=== PATIENT | female | born 1950 | race Caucasian/White ===

== ENCOUNTER 2016-05-20 09:21 | Inpatient (IN) | payer OTHER ==
[2016-05-20] VITALS (9 sets, daily range): BP systolic 110–168; BP diastolic 60–83
[~2016-05-20] VITALS: Ht 172.7 cm; Wt 116.9 kg
[~2016-05-20 09:21] MED LIST: ADVAIR HFA120 INHALA IH; CARRASYN HYDROG85 GM TP; CYCLOBENZAPRINE10 MG PO; CYMBALTA30 MG PO; CYMBALTA60 MG PO; DITROPAN XL15 MG PO; DITROPAN5 MG PO; FERROUS SULFAT325 MG PO; GLUCOPHAGE1000 MG PO; KADIAN30 MG PO; LANTUS 10100 UNITS/ SC; LEVAQUIN500 MG PO; LYRICA50 MG PO; LYRICA75 MG PO; METFORMIN HCL500 MG PO; METHADOSE10 MG PO; MORPHINE SULFAT15 M1 PO; OXYCODONE HCL10 MG PO; PANTOPRAZOLE SO40 MG PO; PERCOCET 10/1 TABLET PO; PERCOCET 5/31 TABLET PO; PREDNISONE10 MG PO; SPIRIVA RESPIMAT4 GM IH; SYNTHROID150 MCG PO; TIZANIDINE HCL2 M1 PO; TOVIAZ8 MG PO; WELLBUTRIN SR150 MG PO; WELLBUTRIN XL300 MG PO; XANAX0.25 MG PO; ZANTAC150 MG PO; ZESTRIL40 MG PO
[2016-05-20 09:51] LABS: EOSINOPHIL (%) 0 % (0-5); HEMATOCRIT 33.2 % (36.0-46.0); IMMATURE GRANULOCYTE (%) 0.4 % (0.0-0.7); IMMATURE GRANULOCYTE COUNT 0.3 K/uL; LYMPHOCYTE COUNT 0.3 K/uL (1.0-2.8); MCH 22.5 PG (29.0-34.0); MCHC 30.4 G/DL (30.0-36.0); MCV 73.9 FL (83-99); MONOCYTE (%) 10.3 % (3-12); MONOCYTE COUNT 0.7 K/uL (0-0.8); NEUTROPHIL (%) 84.5 % (45-76); NEUTROPHIL COUNT 6.1 K/uL (1.8-6.4); RBC DIS.WIDTH-CV 22.5 % (11.8-14.6); RBC DIS.WIDTH-SD 58.7 % (39-53); RED BLOOD COUNT 4.49 M/uL (3.80-5.20); WHITE BLOOD COUNT 7.2 K/uL (4.1-10.2)
[2016-05-20 09:57] LABS: CHLORIDE 104 mEq/L (99-109); POTASSIUM 4.2 mEq/L (3.7-5.4); SODIUM 138 mEq/L (136-147)
[2016-05-20 09:58] LABS: ADD MIUA? YES; BILIRUBIN NEGATIVE; BLOOD NEGATIVE; COLOR YELLOW ((YELLOW)); GLUCOSE (STRIP) >=1000; KETONES NEGATIVE; LEUKOCYTES NEGATIVE; NITRITE NEGATIVE; PH, URINE 5.5 (5-8); PROTEIN (STRIP) TRACE; UROBILINOGEN 0.2 MG/DL (0.2-1.0)
[2016-05-20 09:59] LABS: GLUCOSE 378 mg/dL (70-99)
[2016-05-20 10:00] LABS: ANION GAP 13 MEQ/L (2-14)
[2016-05-20 10:01] LABS: TOTAL BILIRUBIN 0.6 mg/dL (0.0-1.0)
[2016-05-20 10:02] LABS: CARBOXY HGB 1.7 % (0-5); METHEMOGLOBIN 1.1 % (0-1.5); PCO2 42 mm Hg (35-45); PO2 385 mm Hg (80-100)
[2016-05-20 10:03] LABS: COMMENTS - BLOOD GASES A+C+; DEVICE 840; FI02 100 %; MODE SPONT; PEEP 5 CM/H20; PRES. SUPPORT 15 CM/H2O; SITE LR; TOTAL RESP RATE 26 resp/min
[2016-05-20 10:03] LABS: ALKALINE PHOSPHATASE 84 IU/L (3-129); GFR ESTIMATE (CALCULATED) 53 mL/min/
[2016-05-20 10:04] LABS: UREA NITROGEN (BUN) 26 mg/dL (9-23)
[2016-05-20 10:06] LABS: CREATINE KINASE 61 IU/L (1-294); TOTAL CK 61 IU/L (1-294); TROP-I INTERPRETATION NEGATIVE; TROPONIN-I 0.12 ng/mL (0.0-0.30)
[2016-05-20 10:14] LABS: CK-MB 2.4 ng/mL (0.0-4.9)
[2016-05-20 10:28] LABS: BACTERIA RARE; CASTS NONE SEEN /LPF; CRYSTALS NONE SEEN; EPITHELIAL CELLS 1+; MUCUS NONE SEEN; RED BLOOD CELLS 0-5 /HPF (0-5); UCUL ADDED? NO; WHITE BLOOD CELLS 0-5 /HPF (0-5)
[2016-05-20 10:35] LABS: HEMATOLOGY COMMENT 1 SMEAR COMPATIBLE
[2016-05-20] MEDS ORDERED: NEURONTIN100 MG PO (10:35)
[2016-05-20 10:37] LABS: PLATELET COUNT ND K/uL (156-360)
[2016-05-20] MEDS ORDERED: ANCEF,KEFZ1 GM/50 ML IV (10:42)
[2016-05-20] MEDS ORDERED: NYSTATIN100000 UN1 PO (10:46)
[2016-05-20] MEDS ORDERED: DULERA 100 MCG/13 GM IH (10:49)
[2016-05-20] MEDS ORDERED: WELLBUTRIN SR150 MG PO (10:50)
[2016-05-20] MEDS ORDERED: LYRICA75 MG PO (10:51)
[2016-05-20] MEDS ORDERED: ATROVENT 00.5 MG/2.5 IH (10:53)
[2016-05-20] MEDS ORDERED: PROVENTIL,2.5 MG/3 M IH (10:54)
[2016-05-20] MEDS ORDERED: LASIX40 MG PO (10:55)
[2016-05-20] MEDS ORDERED: MORGIDOX100 MG PO (10:56)
[2016-05-20] MEDS ORDERED: PREDNISONE10 MG PO (10:58)
[2016-05-20] MEDS ORDERED: ATIVAN0.5 MG PO (11:06)
[2016-05-20] MEDS ORDERED: ACETAMINOPHEN325 M1 PO (11:08)
[2016-05-20] MEDS ORDERED: MILK OF MAGNESI10 ML PO (11:17)
[2016-05-20] MEDS ORDERED: DULCOLAX10 MG PR (11:18)
[2016-05-20] MEDS ORDERED: FLEET ENEMA-AD118 ML PR (11:19)
[2016-05-20] MEDS ORDERED: LEVO-T175 MCG PO (11:24)
[2016-05-20 16:58] LABS: POINT-OF-CARE METER ID UU14174216
[2016-05-20 17:11] LABS: BASE EXCESS 4.5 mEq/L (-3 to +3); BICARBONATE 29.2 mEq/L (22-26); CARBOXY HGB 1.8 % (0-5); METHEMOGLOBIN 1.5 % (0-1.5); PCO2 43 mm Hg (35-45); pH 7.44 (7.35-7.45)
[2016-05-20 17:13] LABS: COMMENTS - BLOOD GASES A+C+; PO2 76 mm Hg (80-100); SITE LR
[2016-05-20 17:14] LABS: DEVICE AEROSOL MASK; FI02 75 %
[2016-05-20 19:04] LABS: ANION GAP 16 MEQ/L (2-14); CHLORIDE 95 MEQ/L (99-109); DIRECT BILIRUBIN 0.2 mg/dL (0.0-0.3); MAGNESIUM 1.5 mg/dl (1.3-2.7); POTASSIUM 3.9 MEQ/L (3.7-5.4); SAMPLE HEMOLYSIS CHECK 0; SAMPLE ICTERIC CHECK 0; SAMPLE LIPEMIA CHECK 0; SODIUM 139 MEQ/L (136-147); TOTAL BILIRUBIN 0.7 MG/DL (0.0-1.0)
[2016-05-20 19:20] LABS: METH RESISTANT S AUREUS PCR NEGATIVE (NEGATIVE)
[2016-05-20 19:21] LABS: ALKALINE PHOSPHATASE 76 IU/L (3-129); GFR ESTIMATE (CALCULATED) > 59 mL/min/; GLUCOSE 371 mg/dL (70-99); UREA NITROGEN (BUN) 26 mg/dL (9-23)
[2016-05-20 19:30] LABS: PROBE CHECK PASS; SPECIMEN PROCESSING CONTROL PASS
[2016-05-20 19:37] LABS: EOSINOPHIL (%) 0 % (0-5); HEMATOCRIT 33.4 % (36.0-46.0); HEMATOLOGY COMMENT 1 SMEAR COMPATIBLE; IMMATURE GRANULOCYTE (%) 0.1 % (0.0-0.7); LYMPHOCYTE COUNT 0.3 K/uL (1.0-2.8); MCHC 30.8 G/DL (30.0-36.0); MCV 74.7 FL (83-99); MONOCYTE (%) 4.4 % (3-12); MONOCYTE COUNT 0.3 K/uL (0-0.8); NEUTROPHIL (%) 90.7 % (45-76); NEUTROPHIL COUNT 6.5 K/uL (1.8-6.4); PLAT.SUFFICIENCY ADEQUATE; PLATELET COUNT 244 K/uL (156-360); RBC DIS.WIDTH-CV 22.2 % (11.8-14.6); RBC DIS.WIDTH-SD 59.9 % (39-53); RED BLOOD COUNT 4.47 M/uL (3.80-5.20); USER ID NPD; WHITE BLOOD COUNT 7.1 K/uL (4.1-10.2)
[2016-05-20 23:37] LABS: INFLUENZA A VIRAL ANTIGEN NEGATIVE; INFLUENZA B VIRAL ANTIGEN NEGATIVE
[2016-05-21] VITALS (24 sets, daily range): BP systolic 114–152; BP diastolic 60–84
[2016-05-21 05:26] LABS: POINT-OF-CARE METER ID UU13113748
[2016-05-21 07:15] LABS: ANION GAP 14 MEQ/L (2-14); CHLORIDE 98 MEQ/L (99-109); GFR ESTIMATE (CALCULATED) > 59 mL/min/; GLUCOSE 320 mg/dL (70-99); MAGNESIUM 1.5 mg/dl (1.3-2.7); POTASSIUM 3.7 MEQ/L (3.7-5.4); SAMPLE HEMOLYSIS CHECK 0; SAMPLE ICTERIC CHECK 0; SAMPLE LIPEMIA CHECK 0; SODIUM 143 MEQ/L (136-147); UREA NITROGEN (BUN) 29 mg/dL (9-23)
[2016-05-21 07:38] LABS: EOSINOPHIL (%) 0 % (0-5); HEMATOCRIT 32.3 % (36.0-46.0); IMMATURE GRANULOCYTE (%) 0.4 % (0.0-0.7); LYMPHOCYTE COUNT 0.3 K/uL (1.0-2.8); MCH 22.3 PG (29.0-34.0); MCHC 30.3 G/DL (30.0-36.0); MCV 73.6 FL (83-99); MEAN PLAT.VOLUME 11.3 uM^3 (9.5-12.4); MONOCYTE COUNT 0.3 K/uL (0-0.8); NEUTROPHIL (%) 88.9 % (45-76); NEUTROPHIL COUNT 4.7 K/uL (1.8-6.4); PLAT.SUFFICIENCY ADEQUATE; PLATELET COUNT 251 K/uL (156-360); RBC DIS.WIDTH-SD 58.3 % (39-53); RED BLOOD COUNT 4.39 M/uL (3.80-5.20); USER ID SDF; WHITE BLOOD COUNT 5.3 K/uL (4.1-10.2)
[2016-05-22] VITALS (23 sets, daily range): BP systolic 117–151; BP diastolic 54–114
[2016-05-22 06:51] LABS: ANION GAP 13 MEQ/L (2-14); CHLORIDE 97 MEQ/L (99-109); GFR ESTIMATE (CALCULATED) > 59 mL/min/; GLUCOSE 297 mg/dL (70-99); POTASSIUM 3.3 MEQ/L (3.7-5.4); SAMPLE HEMOLYSIS CHECK 0; SAMPLE ICTERIC CHECK 0; SAMPLE LIPEMIA CHECK 0; SODIUM 142 MEQ/L (136-147); UREA NITROGEN (BUN) 29 mg/dL (9-23)
[2016-05-22 07:03] LABS: EOSINOPHIL (%) 0 % (0-5); HEMATOCRIT 31.7 % (36.0-46.0); IMMATURE GRANULOCYTE (%) 0.9 % (0.0-0.7); IMMATURE GRANULOCYTE COUNT 0.1 K/uL; LYMPHOCYTE COUNT 0.3 K/uL (1.0-2.8); MCH 22.6 PG (29.0-34.0); MCHC 30.6 G/DL (30.0-36.0); MCV 73.9 FL (83-99); MONOCYTE (%) 4.9 % (3-12); MONOCYTE COUNT 0.3 K/uL (0-0.8); NEUTROPHIL (%) 88.3 % (45-76); NEUTROPHIL COUNT 4.8 K/uL (1.8-6.4); PLAT.SUFFICIENCY ADEQUATE; PLATELET COUNT 244 K/uL (156-360); RBC DIS.WIDTH-CV 22.1 % (11.8-14.6); RBC DIS.WIDTH-SD 58.8 % (39-53); RED BLOOD COUNT 4.29 M/uL (3.80-5.20); USER ID SDF; WHITE BLOOD COUNT 5.5 K/uL (4.1-10.2)
[2016-05-22 07:05] LABS: MAGNESIUM 2.2 mg/dl (1.3-2.7)
[2016-05-22 15:46] LABS: POINT-OF-CARE METER ID UU14174217
[2016-05-22 16:35] LABS: BASE EXCESS 16.4 mEq/L (-3 to +3); CARBOXY HGB 1.9 % (0-5); METHEMOGLOBIN 1.5 % (0-1.5); PO2 62 mm Hg (80-100); pH 7.51 (7.35-7.45)
[2016-05-22 16:36] LABS: BICARBONATE 41.5 mEq/L (22-26); COMMENTS - BLOOD GASES A+C+; DEVICE HHFNC; FI02 60 %; O2 FLOW 40 L/MIN; PCO2 52 mm Hg (35-45); SITE LR
[2016-05-22 22:12] LABS: POINT-OF-CARE METER ID UU14174217
[2016-05-23] VITALS (23 sets, daily range): BP systolic 127–165; BP diastolic 57–109
[2016-05-23 06:52] LABS: ANION GAP 10 MEQ/L (2-14); CHLORIDE 96 MEQ/L (99-109); GFR ESTIMATE (CALCULATED) > 59 mL/min/; GLUCOSE 207 mg/dL (70-99); POTASSIUM 3.7 MEQ/L (3.7-5.4); SAMPLE HEMOLYSIS CHECK 0; SAMPLE ICTERIC CHECK 0; SAMPLE LIPEMIA CHECK 0; SODIUM 138 MEQ/L (136-147); UREA NITROGEN (BUN) 32 mg/dL (9-23)
[2016-05-23 07:04] LABS: EOSINOPHIL (%) 0.2 % (0-5); HEMATOCRIT 32.6 % (36.0-46.0); IMMATURE GRANULOCYTE (%) 1.4 % (0.0-0.7); IMMATURE GRANULOCYTE COUNT 0.1 K/uL; LYMPHOCYTE COUNT 0.5 K/uL (1.0-2.8); MCH 22.5 PG (29.0-34.0); MCHC 30.1 G/DL (30.0-36.0); MCV 74.9 FL (83-99); MONOCYTE (%) 10.2 % (3-12); MONOCYTE COUNT 0.6 K/uL (0-0.8); NEUTROPHIL (%) 79.4 % (45-76); NEUTROPHIL COUNT 4.5 K/uL (1.8-6.4); RBC DIS.WIDTH-CV 21.6 % (11.8-14.6); RBC DIS.WIDTH-SD 59.1 % (39-53); RED BLOOD COUNT 4.35 M/uL (3.80-5.20); WHITE BLOOD COUNT 5.6 K/uL (4.1-10.2)
[2016-05-23 07:19] LABS: MEAN PLAT.VOLUME 11.5 uM^3 (9.5-12.4); PLAT.SUFFICIENCY ADEQUATE; PLATELET COUNT 236 K/uL (156-360); USER ID SDF
[2016-05-24] VITALS (24 sets, daily range): BP systolic 94–180; BP diastolic 55–90
[2016-05-24 01:06] LABS: POINT-OF-CARE METER ID UU14174217
[2016-05-24 06:29] LABS: EOSINOPHIL (%) 0 % (0-5); HEMATOCRIT 35.2 % (36.0-46.0); IMMATURE GRANULOCYTE (%) 2.3 % (0.0-0.7); IMMATURE GRANULOCYTE COUNT 0.1 K/uL; LYMPHOCYTE COUNT 0.4 K/uL (1.0-2.8); MCH 21.9 PG (29.0-34.0); MCV 75.7 FL (83-99); MONOCYTE (%) 3.4 % (3-12); MONOCYTE COUNT 0.2 K/uL (0-0.8); NEUTROPHIL (%) 87.8 % (45-76); NEUTROPHIL COUNT 5.4 K/uL (1.8-6.4); RBC DIS.WIDTH-CV 21.7 % (11.8-14.6); RBC DIS.WIDTH-SD 59.2 % (39-53); RED BLOOD COUNT 4.65 M/uL (3.80-5.20); WHITE BLOOD COUNT 6.2 K/uL (4.1-10.2)
[2016-05-24 06:32] LABS: ANION GAP 11 MEQ/L (2-14); CHLORIDE 100 MEQ/L (99-109); GFR ESTIMATE (CALCULATED) > 59 mL/min/; GLUCOSE 128 mg/dL (70-99); SAMPLE HEMOLYSIS CHECK 0; SAMPLE ICTERIC CHECK 0; SAMPLE LIPEMIA CHECK 0; UREA NITROGEN (BUN) 32 mg/dL (9-23)
[2016-05-24 06:48] LABS: SODIUM 145 MEQ/L (136-147)
[2016-05-24 08:31] LABS: PLAT.SUFFICIENCY ADEQUATE; PLATELET COUNT 206 K/uL (156-360); USER ID CCL
[2016-05-24 16:39] LABS: POINT-OF-CARE METER ID UU13113748
[2016-05-25] VITALS (19 sets, daily range): BP systolic 118–152; BP diastolic 51–78
[2016-05-25 06:08] LABS: EOSINOPHIL (%) 0.2 % (0-5); IMMATURE GRANULOCYTE (%) 5.3 % (0.0-0.7); IMMATURE GRANULOCYTE COUNT 0.4 K/uL; LYMPHOCYTE COUNT 0.8 K/uL (1.0-2.8); MONOCYTE (%) 7.3 % (3-12); MONOCYTE COUNT 0.5 K/uL (0-0.8); NEUTROPHIL COUNT 4.9 K/uL (1.8-6.4)
[2016-05-25 06:14] LABS: HEMATOCRIT 34.4 % (36.0-46.0); MCH 22.2 PG (29.0-34.0); MCHC 29.7 G/DL (30.0-36.0); MCV 74.8 FL (83-99); RBC DIS.WIDTH-CV 21.5 % (11.8-14.6); RBC DIS.WIDTH-SD 57.8 % (39-53); WHITE BLOOD COUNT 6.6 K/uL (4.1-10.2)
[2016-05-25 06:15] LABS: ANION GAP 9 MEQ/L (2-14); CHLORIDE 96 MEQ/L (99-109); GFR ESTIMATE (CALCULATED) > 59 mL/min/; GLUCOSE 181 mg/dL (70-99); MAGNESIUM 1.7 mg/dl (1.3-2.7); POTASSIUM 3.5 MEQ/L (3.7-5.4); SAMPLE HEMOLYSIS CHECK 0; SAMPLE ICTERIC CHECK 0; SAMPLE LIPEMIA CHECK 0; UREA NITROGEN (BUN) 30 mg/dL (9-23)
[2016-05-25 06:16] LABS: SODIUM 136 MEQ/L (136-147)
[2016-05-25 06:33] LABS: ANISOCYTOSIS 1+; HEMATOLOGY COMMENT 1 REV; MACROCYTES 1+; PLAT.SUFFICIENCY ADEQUATE
[2016-05-25 06:35] LABS: PLATELET COUNT 214 K/uL (156-360)
[2016-05-25 12:25] LABS: POINT-OF-CARE METER ID UU14174217
[2016-05-25 15:41] LABS: POINT-OF-CARE METER ID UU14174217
[2016-05-25 22:49] LABS: POINT-OF-CARE METER ID UU14174217
[2016-05-26] VITALS (12 sets, daily range): BP systolic 126–158; BP diastolic 45–77
[2016-05-26 07:06] LABS: ANION GAP 15 MEQ/L (2-14); CHLORIDE 97 MEQ/L (99-109); GFR ESTIMATE (CALCULATED) 59 mL/min/; GLUCOSE 229 mg/dL (70-99); MAGNESIUM 1.8 mg/dl (1.3-2.7); POTASSIUM 4.2 MEQ/L (3.7-5.4); SAMPLE HEMOLYSIS CHECK 0; SAMPLE ICTERIC CHECK 0; SAMPLE LIPEMIA CHECK 0; SODIUM 138 MEQ/L (136-147); UREA NITROGEN (BUN) 35 mg/dL (9-23)
[2016-05-26 07:07] LABS: HEMATOCRIT 37.6 % (36.0-46.0); MCH 22.3 PG (29.0-34.0); MCHC 30.1 G/DL (30.0-36.0); MCV 74.2 FL (83-99); RBC DIS.WIDTH-CV 22.6 % (11.8-14.6); RED BLOOD COUNT 5.07 M/uL (3.80-5.20)
[2016-05-26 07:08] LABS: WHITE BLOOD COUNT 10.6 K/uL (4.1-10.2)
[2016-05-26 07:49] LABS: ABS NEUTROPHIL COUNT 8.51; ANISOCYTOSIS 1+; EOSINOPHIL (%) 0.2 % (0-5); IMMATURE GRANULOCYTE (%) 6.2 % (0.0-0.7); IMMATURE GRANULOCYTE COUNT 0.7 K/uL; LYMPHOCYTE COUNT 1.3 K/uL (1.0-2.8); MACROCYTES 1+; MONOCYTE (%) 7.8 % (3-12); MONOCYTE COUNT 0.8 K/uL (0-0.8); NEUTROPHIL (%) 73.2 % (45-76); NEUTROPHIL COUNT 7.8 K/uL (1.8-6.4); PLAT.SUFFICIENCY ADEQUATE; PLATELET COUNT UNABLE TO REPORT K/uL (156-360)
[2016-05-26 11:32] LABS: POINT-OF-CARE METER ID UU14174217
[2016-05-26 16:33] LABS: POINT-OF-CARE METER ID UU14174217
[2016-05-26 22:20] LABS: POINT-OF-CARE METER ID UU14174217
[2016-05-27] VITALS (12 sets, daily range): BP systolic 123–173; BP diastolic 58–95
[2016-05-27 06:36] LABS: ANION GAP 11 MEQ/L (2-14); CHLORIDE 101 MEQ/L (99-109); GFR ESTIMATE (CALCULATED) > 59 mL/min/; POTASSIUM 3.9 MEQ/L (3.7-5.4); SAMPLE HEMOLYSIS CHECK 0; SAMPLE ICTERIC CHECK 0; SAMPLE LIPEMIA CHECK 0; SODIUM 142 MEQ/L (136-147); UREA NITROGEN (BUN) 31 mg/dL (9-23)
[2016-05-27 06:37] LABS: GLUCOSE 109 mg/dL (70-99); MAGNESIUM 2.2 mg/dl (1.3-2.7)
[2016-05-27 07:50] LABS: ABS NEUTROPHIL COUNT 6.78; ANISOCYTOSIS 1+; EOSINOPHIL (%) 0.6 % (0-5); EOSINOPHIL ABS CT 0.09; EOSINOPHIL COUNT 0.1 K/uL (0-0.3); IMMATURE GRANULOCYTE (%) 5.3 % (0.0-0.7); IMMATURE GRANULOCYTE COUNT 0.5 K/uL; LYMPHOCYTE COUNT 1.7 K/uL (1.0-2.8); MACROCYTES 1+; MCH 22.9 PG (29.0-34.0); MCHC 30.3 G/DL (30.0-36.0); MCV 75.6 FL (83-99); MEAN PLAT.VOLUME 11.2 uM^3 (9.5-12.4); MONOCYTE (%) 7.6 % (3-12); MONOCYTE COUNT 0.7 K/uL (0-0.8); NEUTROPHIL (%) 67.5 % (45-76); NEUTROPHIL COUNT 6.3 K/uL (1.8-6.4); PLAT.SUFFICIENCY ADEQUATE; PLATELET COUNT 272 K/uL (156-360); RBC DIS.WIDTH-SD 61.9 % (39-53); RED BLOOD COUNT 4.76 M/uL (3.80-5.20); USER ID CCL; WHITE BLOOD COUNT 9.3 K/uL (4.1-10.2)
[2016-05-28 00:16] VITALS: BP 131/70
[2016-05-28 03:04] VITALS: BP 146/76
[2016-05-28 06:46] LABS: ANION GAP 13 MEQ/L (2-14); CHLORIDE 99 MEQ/L (99-109); GFR ESTIMATE (CALCULATED) > 59 mL/min/; MAGNESIUM 2.2 mg/dl (1.3-2.7); SAMPLE HEMOLYSIS CHECK 0; SAMPLE ICTERIC CHECK 0; SAMPLE LIPEMIA CHECK 0; SODIUM 137 MEQ/L (136-147); UREA NITROGEN (BUN) 34 mg/dL (9-23)
[2016-05-28 06:53] LABS: GLUCOSE 341 mg/dL (70-99); POTASSIUM 4.7 MEQ/L (3.7-5.4)
[2016-05-28 07:09] LABS: HEMATOCRIT 41.4 % (36.0-46.0); MCH 22.7 PG (29.0-34.0); MCV 75.7 FL (83-99); RBC DIS.WIDTH-CV 23.3 % (11.8-14.6); RBC DIS.WIDTH-SD 61.6 % (39-53); RED BLOOD COUNT 5.47 M/uL (3.80-5.20)
[2016-05-28 07:15] LABS: WHITE BLOOD COUNT 12.2 K/uL (4.1-10.2)
[2016-05-28 08:37] LABS: EOSINOPHIL (%) 0 % (0-5); HEMATOLOGY COMMENT 1 SMEAR COMPATIBLE; IMMATURE GRANULOCYTE (%) 3.1 % (0.0-0.7); IMMATURE GRANULOCYTE COUNT 0.4 K/uL; LYMPHOCYTE COUNT 0.8 K/uL (1.0-2.8); MONOCYTE COUNT 0.1 K/uL (0-0.8); NEUTROPHIL (%) 89.3 % (45-76); NEUTROPHIL COUNT 10.9 K/uL (1.8-6.4); PLAT.SUFFICIENCY ADEQUATE; PLATELET CLUMPS PRESENT; USER ID STC
[2016-05-28 08:40] VITALS: BP 122/58
[2016-05-28 11:25] VITALS: BP 145/67
[2016-05-28 16:00] VITALS: BP 130/61
[2016-05-28 16:34] LABS: POINT-OF-CARE METER ID UU13113698
[2016-05-28 19:30] VITALS: BP 136/92
[2016-05-29 00:53] VITALS: BP 144/70
[2016-05-29 03:34] VITALS: BP 167/77
[2016-05-29 06:01] LABS: ANION GAP 11 MEQ/L (2-14); CHLORIDE 98 MEQ/L (99-109); GFR ESTIMATE (CALCULATED) 59 mL/min/; GLUCOSE 298 mg/dL (70-99); MAGNESIUM 2.1 mg/dl (1.3-2.7); POTASSIUM 4.9 MEQ/L (3.7-5.4); SAMPLE HEMOLYSIS CHECK 0; SAMPLE ICTERIC CHECK 0; SAMPLE LIPEMIA CHECK 0; SODIUM 139 MEQ/L (136-147); UREA NITROGEN (BUN) 38 mg/dL (9-23)
[2016-05-29 06:41] LABS: EOSINOPHIL (%) 0 % (0-5); IMMATURE GRANULOCYTE (%) 1.5 % (0.0-0.7); IMMATURE GRANULOCYTE COUNT 0.2 K/uL; LYMPHOCYTE COUNT 1.4 K/uL (1.0-2.8); MCHC 29.3 G/DL (30.0-36.0); MCV 75.2 FL (83-99); MONOCYTE (%) 3.1 % (3-12); MONOCYTE COUNT 0.5 K/uL (0-0.8); NEUTROPHIL (%) 86.6 % (45-76); NEUTROPHIL COUNT 14.3 K/uL (1.8-6.4); RBC DIS.WIDTH-CV 23.4 % (11.8-14.6); RBC DIS.WIDTH-SD 61.6 % (39-53); RED BLOOD COUNT 5.45 M/uL (3.80-5.20)
[2016-05-29 06:52] LABS: WHITE BLOOD COUNT 16.5 K/uL (4.1-10.2)
[2016-05-29 07:11] LABS: PLAT.SUFFICIENCY ADEQUATE; PLATELET COUNT 317 K/uL (156-360); USER ID CL
[2016-05-29 08:23] VITALS: BP 133/97
[2016-05-29 11:05] LABS: POINT-OF-CARE METER ID UU13113698
[2016-05-29 12:30] VITALS: BP 140/89
[2016-05-29 16:13] LABS: POINT-OF-CARE METER ID UU13113698
[2016-05-29 16:43] VITALS: BP 137/69
[2016-05-29 20:00] VITALS: BP 124/89
[2016-05-29 21:07] LABS: POINT-OF-CARE METER ID UU14174216
[2016-05-29 21:53] LABS: POINT-OF-CARE METER ID UU13113698
[2016-05-30] VITALS: BP 130/62
[2016-05-30 06:58] LABS: ANION GAP 12 MEQ/L (2-14); CHLORIDE 96 MEQ/L (99-109); GFR ESTIMATE (CALCULATED) 48 mL/min/; GLUCOSE 285 mg/dL (70-99); MAGNESIUM 2.1 mg/dl (1.3-2.7); POTASSIUM 4.7 MEQ/L (3.7-5.4); SAMPLE HEMOLYSIS CHECK 0; SAMPLE ICTERIC CHECK 0; SAMPLE LIPEMIA CHECK 0; SODIUM 135 MEQ/L (136-147); UREA NITROGEN (BUN) 39 mg/dL (9-23)
[2016-05-30 07:06] LABS: EOSINOPHIL (%) 0 % (0-5); HEMATOCRIT 40.8 % (36.0-46.0); IMMATURE GRANULOCYTE (%) 1.1 % (0.0-0.7); IMMATURE GRANULOCYTE COUNT 0.2 K/uL; LYMPHOCYTE COUNT 1.8 K/uL (1.0-2.8); MCHC 30.4 G/DL (30.0-36.0); MCV 75.7 FL (83-99); MONOCYTE (%) 6.2 % (3-12); MONOCYTE COUNT 0.9 K/uL (0-0.8); NEUTROPHIL (%) 79.7 % (45-76); NEUTROPHIL COUNT 11.4 K/uL (1.8-6.4); RBC DIS.WIDTH-CV 23.5 % (11.8-14.6); RBC DIS.WIDTH-SD 61.7 % (39-53); RED BLOOD COUNT 5.39 M/uL (3.80-5.20); WHITE BLOOD COUNT 14.3 K/uL (4.1-10.2)
[2016-05-30 07:16] LABS: PLAT.SUFFICIENCY ADEQUATE; PLATELET COUNT 320 K/uL (156-360); USER ID CCL
[2016-05-30 08:00] VITALS: BP 146/82
[2016-05-30 10:45] LABS: POINT-OF-CARE METER ID UU14174216
[2016-05-30 12:07] VITALS: BP 127/68
[2016-05-30 15:14] LABS: POINT-OF-CARE METER ID UU13113781
[2016-05-30 15:31] VITALS: BP 107/59
[2016-05-30 19:25] VITALS: BP 111/68
[2016-05-30 23:25] VITALS: BP 119/69
[2016-05-31 03:00] VITALS: BP 103/64
[2016-05-31 07:15] LABS: ANION GAP 10 MEQ/L (2-14); CHLORIDE 95 MEQ/L (99-109); GFR ESTIMATE (CALCULATED) 53 mL/min/; GLUCOSE 266 mg/dL (70-99); POTASSIUM 4.9 MEQ/L (3.7-5.4); SAMPLE HEMOLYSIS CHECK 0; SAMPLE ICTERIC CHECK 0; SAMPLE LIPEMIA CHECK 0; SODIUM 135 MEQ/L (136-147); UREA NITROGEN (BUN) 49 mg/dL (9-23)
[2016-05-31 07:17] LABS: MAGNESIUM 2.5 mg/dl (1.3-2.7)
[2016-05-31 07:20] VITALS: BP 116/62
[2016-05-31 07:45] LABS: POINT-OF-CARE METER ID UU13113698
[2016-05-31 07:46] LABS: EOSINOPHIL (%) 0.1 % (0-5); HEMATOCRIT 41.6 % (36.0-46.0); IMMATURE GRANULOCYTE (%) 0.9 % (0.0-0.7); IMMATURE GRANULOCYTE COUNT 0.1 K/uL; LYMPHOCYTE COUNT 1.5 K/uL (1.0-2.8); MCH 23.3 PG (29.0-34.0); MCHC 30.8 G/DL (30.0-36.0); MCV 75.6 FL (83-99); MEAN PLAT.VOLUME 9.5 uM^3 (9.5-12.4); MONOCYTE (%) 9.2 % (3-12); MONOCYTE COUNT 1.2 K/uL (0-0.8); NEUTROPHIL (%) 78.2 % (45-76); NEUTROPHIL COUNT 10.4 K/uL (1.8-6.4); RBC DIS.WIDTH-CV 23.5 % (11.8-14.6); RBC DIS.WIDTH-SD 62.2 % (39-53); WHITE BLOOD COUNT 13.3 K/uL (4.1-10.2)
[2016-05-31 08:06] LABS: PLAT.SUFFICIENCY ADEQUATE; PLATELET COUNT 311 K/uL (156-360); USER ID SDF
[2016-05-31 11:42] LABS: POINT-OF-CARE METER ID UU13113698
[2016-05-31 12:35] VITALS: BP 104/59
[2016-05-31 16:51] VITALS: BP 102/55
[2016-05-31 17:06] LABS: POINT-OF-CARE METER ID UU13113698
[2016-05-31 19:43] VITALS: BP 108/69
[2016-06-01] VITALS: BP 112/68
[2016-06-01 02:48] VITALS: BP 114/68
[2016-06-01 07:15] LABS: ANION GAP 12 MEQ/L (2-14); CHLORIDE 97 MEQ/L (99-109); GFR ESTIMATE (CALCULATED) 43 mL/min/; GLUCOSE 270 mg/dL (70-99); MAGNESIUM 2.5 mg/dl (1.3-2.7); POTASSIUM 4.8 MEQ/L (3.7-5.4); SAMPLE HEMOLYSIS CHECK 0; SAMPLE ICTERIC CHECK 0; SAMPLE LIPEMIA CHECK 0; SODIUM 135 MEQ/L (136-147); UREA NITROGEN (BUN) 59 mg/dL (9-23)
[2016-06-01 07:40] LABS: EOSINOPHIL (%) 0.1 % (0-5); HEMATOCRIT 41.4 % (36.0-46.0); IMMATURE GRANULOCYTE (%) 0.9 % (0.0-0.7); IMMATURE GRANULOCYTE COUNT 0.1 K/uL; LYMPHOCYTE COUNT 1.4 K/uL (1.0-2.8); MCH 23.4 PG (29.0-34.0); MCHC 30.9 G/DL (30.0-36.0); MCV 75.8 FL (83-99); MONOCYTE (%) 6.5 % (3-12); MONOCYTE COUNT 0.8 K/uL (0-0.8); NEUTROPHIL (%) 80.7 % (45-76); NEUTROPHIL COUNT 9.6 K/uL (1.8-6.4); RBC DIS.WIDTH-CV 23.4 % (11.8-14.6); RBC DIS.WIDTH-SD 62.3 % (39-53); RED BLOOD COUNT 5.46 M/uL (3.80-5.20); WHITE BLOOD COUNT 11.8 K/uL (4.1-10.2)
[2016-06-01 08:04] LABS: PLAT.SUFFICIENCY ADEQUATE; PLATELET COUNT 299 K/uL (156-360); USER ID SDF
[2016-06-01 08:07] LABS: POINT-OF-CARE METER ID UU14174216; POINT-OF-CARE USER ID NUTSLF44
[2016-06-01 08:45] VITALS: BP 107/62
[2016-06-01 11:46] LABS: POINT-OF-CARE METER ID UU14174216; POINT-OF-CARE USER ID NUTSLF44
[2016-06-01 12:15] VITALS: BP 102/64
[2016-06-01 15:27] VITALS: BP 103/59
[2016-06-01 17:10] LABS: POINT-OF-CARE METER ID UU14174216
[2016-06-01 19:15] VITALS: BP 110/70
[2016-06-01 22:00] LABS: POINT-OF-CARE METER ID UU14174216
[2016-06-02] VITALS (7 sets, daily range): BP systolic 99–118; BP diastolic 56–84
[2016-06-02 06:51] LABS: HEMATOCRIT 40.1 % (36.0-46.0); MCHC 30.9 G/DL (30.0-36.0); MCV 74.4 FL (83-99); RBC DIS.WIDTH-CV 23.9 % (11.8-14.6); RBC DIS.WIDTH-SD 62.5 % (39-53); RED BLOOD COUNT 5.39 M/uL (3.80-5.20); WHITE BLOOD COUNT 12.2 K/uL (4.1-10.2)
[2016-06-02 07:35] LABS: ANION GAP 10 MEQ/L (2-14); CHLORIDE 96 MEQ/L (99-109); GFR ESTIMATE (CALCULATED) 32 mL/min/; GLUCOSE 205 mg/dL (70-99); MAGNESIUM 2.6 mg/dl (1.3-2.7); SAMPLE HEMOLYSIS CHECK 1; SAMPLE ICTERIC CHECK 0; SAMPLE LIPEMIA CHECK 0; SODIUM 135 MEQ/L (136-147); UREA NITROGEN (BUN) 71 mg/dL (9-23)
[2016-06-02 07:43] LABS: EOSINOPHIL (%) 0.5 % (0-5); EOSINOPHIL COUNT 0.1 K/uL (0-0.3); IMMATURE GRANULOCYTE (%) 0.7 % (0.0-0.7); IMMATURE GRANULOCYTE COUNT 0.8 K/uL; LYMPHOCYTE COUNT 2.2 K/uL (1.0-2.8); MONOCYTE COUNT 1.2 K/uL (0-0.8); NEUTROPHIL (%) 70.8 % (45-76); NEUTROPHIL COUNT 8.6 K/uL (1.8-6.4)
[2016-06-02 08:43] LABS: HEMATOLOGY COMMENT 1 SMEAR COMPATIBLE; PLAT.SUFFICIENCY ADEQUATE; PLATELET COUNT 294 K/uL (156-360); USER ID STC
[2016-06-02 08:52] LABS: MEAN PLAT.VOLUME 11.7 uM^3 (9.5-12.4)
[2016-06-02 11:41] LABS: POINT-OF-CARE METER ID UU13113781
[2016-06-03 04:06] VITALS: BP 117/65
[2016-06-03 06:51] LABS: ANION GAP 6 MEQ/L (2-14); CHLORIDE 97 MEQ/L (99-109); GFR ESTIMATE (CALCULATED) 40 mL/min/; GLUCOSE 173 mg/dL (70-99); MAGNESIUM 2.6 mg/dl (1.3-2.7); POTASSIUM 4.5 MEQ/L (3.7-5.4); SAMPLE HEMOLYSIS CHECK 0; SAMPLE ICTERIC CHECK 0; SAMPLE LIPEMIA CHECK 0; SODIUM 136 MEQ/L (136-147); UREA NITROGEN (BUN) 68 mg/dL (9-23)
[2016-06-03 07:03] LABS: EOSINOPHIL (%) 0.5 % (0-5); EOSINOPHIL COUNT 0.1 K/uL (0-0.3); HEMATOCRIT 41.6 % (36.0-46.0); IMMATURE GRANULOCYTE (%) 0.8 % (0.0-0.7); IMMATURE GRANULOCYTE COUNT 0.1 K/uL; LYMPHOCYTE COUNT 1.5 K/uL (1.0-2.8); MCV 76.5 FL (83-99); MONOCYTE (%) 5.1 % (3-12); MONOCYTE COUNT 0.5 K/uL (0-0.8); NEUTROPHIL (%) 78.9 % (45-76); RBC DIS.WIDTH-CV 23.5 % (11.8-14.6); RBC DIS.WIDTH-SD 63.3 % (39-53); RED BLOOD COUNT 5.44 M/uL (3.80-5.20); WHITE BLOOD COUNT 10.1 K/uL (4.1-10.2)
[2016-06-03 07:09] VITALS: BP 108/82
[2016-06-03 07:39] LABS: PLATELET COUNT UNABLE TO REPORT K/uL (156-360); USER ID TLW
[2016-06-03 11:47] VITALS: BP 112/76
[2016-06-03] MEDS ORDERED: DUONEB 2.5-0.5 M3 ML AEROSOL ×2 (12:12)
[2016-06-03] MEDS ORDERED: SPIRIVA RESPIMAT4 GM IH (12:12)
[2016-06-03] MEDS ORDERED: LOVENOX40 MG/0.4 SC (12:13)
[2016-06-03] MEDS ORDERED: FERROUS SULFAT325 MG PO (12:13)
[2016-06-03] MEDS ORDERED: LOSARTAN POTASS25 MG PO (12:13)
[2016-06-03] MEDS ORDERED: CARVEDILOL6.25 MG PO (12:13)
[2016-06-03] MEDS ORDERED: FAMOTIDINE20 MG PO (12:15)
[2016-06-03] MEDS ORDERED: NOVOLOG PE100 UNITS/ SC (12:16)
[2016-06-03] MEDS ORDERED: PREDNISONE10 MG PO (12:16)
[2016-06-03] MEDS ORDERED: OXYCODONE-APAP1 EACH PO (12:17)
[2016-06-03] MEDS ORDERED: LYRICA75 MG PO (12:17)
[2016-06-03] MEDS ORDERED: ATIVAN0.5 MG PO (12:17)
== END 2016-06-03 14:09 | DRG 189 ==
LOC: EME 09:21 → EDOF 10:32 → 4EAST 10:32 → 4WEST 10:32 → 4EAST 10:45 → 4WEST 17:37 → 4EAST 05-27 23:59
PROVIDERS: Emergency Medicine; Family Medicine; Internal Medicine; Internal Medicine Nephrology; Internal Medicine Pulmonary Disease
DX: J96.21 Acute and chronic respiratory failure with hypoxia (principal); J44.0 Chronic obstructive pulmonary disease with (acute) lower respiratory infection; J18.9 Pneumonia, unspecified organism; J44.1 Chronic obstructive pulmonary disease with (acute) exacerbation; I50.42 Chronic combined systolic (congestive) and diastolic (congestive) heart failure; Z68.41 Body mass index [BMI] 40.0-44.9, adult; E11.9 Type 2 diabetes mellitus without complications; N28.9 Disorder of kidney and ureter, unspecified; I10 Essential (primary) hypertension; G89.29 Other chronic pain; E66.01 Morbid (severe) obesity due to excess calories; E87.70 Fluid overload, unspecified; E03.9 Hypothyroidism, unspecified; Z79.4 Long term (current) use of insulin; D64.9 Anemia, unspecified; F41.9 Anxiety disorder, unspecified; Z98.84 Bariatric surgery status; Z91.040 Latex allergy status; Z87.891 Personal history of nicotine dependence
CPT/HCPCS: 36600; 71010; 80048; 80048 91; 80053; 80076; 80202; 81003; 82550; 82553; 82803; 82948; 83605; 83735; 83880; 84100; 84484; 85025; 85025 91; 85730; 87040; 87070; 87077; 87081; 87186; 87205; 87449; 87502; 87641; 87801; 93005; 94002; 94010; 94640; 94640 76; 94644; 94660; 94667; 94760; 94799; 97530 GO; 97530 GP; 99202; 99281; 99284; J0456; J0696; J1100; J1630; J1650; J1815; J1940; J1956; J2185; J2543; J2920; J2930; J3370; J3475; J3480; J7030; J7040; J7050; J7512; J7644; S0028

== ENCOUNTER 2016-06-18 08:35 | Inpatient (IN) | payer OTHER ==
[~2016-06-18] VITALS: Ht 165.1 cm; Wt 119.0 kg
[~2016-06-18 08:35] MED LIST changes: +ACETAMINOPHEN325 M1 PO; +ANCEF,KEFZ1 GM/50 ML IV; +ATIVAN0.5 MG PO; +ATROVENT 00.5 MG/2.5 IH; +CARVEDILOL6.25 MG PO; +DULCOLAX10 MG PR; +DULERA 100 MCG/13 GM IH; +DUONEB 2.5-0.5 M3 ML AEROSOL; +FAMOTIDINE20 MG PO; +FLEET ENEMA-AD118 ML PR; +LASIX40 MG PO; +LEVO-T175 MCG PO; +LOSARTAN POTASS25 MG PO; +LOVENOX40 MG/0.4 SC; +MILK OF MAGNESI10 ML PO; +MORGIDOX100 MG PO; +NEURONTIN100 MG PO; +NOVOLOG PE100 UNITS/ SC; +NYSTATIN100000 UN1 PO; +OXYCODONE-APAP1 EACH PO; +PROVENTIL,2.5 MG/3 M IH
[2016-06-18 09:50] LABS: CHLORIDE 105 mEq/L (99-109); POTASSIUM 4.8 mEq/L (3.7-5.4); SODIUM 141 mEq/L (136-147)
[2016-06-18 09:52] LABS: GLUCOSE 217 mg/dL (70-99)
[2016-06-18 09:53] LABS: ANION GAP 13 MEQ/L (2-14)
[2016-06-18 09:54] LABS: HEMATOCRIT 41.3 % (36.0-46.0); MCH 24.5 PG (29.0-34.0); MCHC 31.2 G/DL (30.0-36.0); MCV 78.5 FL (83-99); RBC DIS.WIDTH-CV 23.7 % (11.8-14.6); RBC DIS.WIDTH-SD 66.2 % (39-53); RED BLOOD COUNT 5.26 M/uL (3.80-5.20); TOTAL BILIRUBIN 0.8 mg/dL (0.0-1.0); WHITE BLOOD COUNT 7.9 K/uL (4.1-10.2)
[2016-06-18 09:56] LABS: ALKALINE PHOSPHATASE 91 IU/L (3-129); GFR ESTIMATE (CALCULATED) 53 mL/min/
[2016-06-18 09:57] LABS: UREA NITROGEN (BUN) 34 mg/dL (9-23)
[2016-06-18 10:22] LABS: MEAN PLAT.VOLUME 11.1 uM^3 (9.5-12.4); PLATELET COUNT 220 K/uL (156-360)
[2016-06-18 12:50] LABS: ADD MIUA? YES; BILIRUBIN SMALL; BLOOD SMALL; COLOR YELLOW ((YELLOW)); GLUCOSE (STRIP) NEGATIVE; KETONES NEGATIVE; LEUKOCYTES MODERATE; NITRITE NEGATIVE; PH, URINE 6.5 (5-8); PROTEIN (STRIP) TRACE; SPECIFIC GRAVITY 1.019 (1.000-1.030)
[2016-06-18 13:21] LABS: BACTERIA 4+; CASTS NONE SEEN /LPF; CRYSTALS NONE SEEN; EPITHELIAL CELLS RARE; MUCUS NONE SEEN; UCUL ADDED? YES
[2016-06-18] MEDS ORDERED: COUMADIN2 MG PO (13:41)
[2016-06-18] MEDS ORDERED: CYMBALTA60 MG PO (13:42)
[2016-06-18] MEDS ORDERED: ABILIFY5 MG PO (13:42)
[2016-06-18] MEDS ORDERED: WELLBUTRIN XL300 MG PO (13:43)
[2016-06-18] MEDS ORDERED: WELLBUTRIN XL150 MG PO (13:44)
[2016-06-18] MEDS ORDERED: [UNRECOGNIZED DRUG - OTHER] PR (13:45)
[2016-06-18] MEDS ORDERED: LEVEMIR100 UNIT/2 SC (13:45)
[2016-06-18] MEDS ORDERED: ULTRAM50 MG PO (13:47)
[2016-06-18] MEDS ORDERED: ASPIRIN81 M2 PO (13:47)
[2016-06-18] MEDS ORDERED: MIRALAX17 GM PO (13:48)
[2016-06-18] MEDS ORDERED: COLACE100 MG PO (13:48)
[2016-06-18] MEDS ORDERED: ATIVAN0.5 MG PO (13:50)
[2016-06-18] MEDS ORDERED: ADVAIR HFA120 INHALA IH (13:53)
[2016-06-18] MEDS ORDERED: DUONEB 2.5-0.5 M3 ML AEROSOL (13:54)
[2016-06-18] MEDS ORDERED: HYDROPHOR228 GM TP (13:54)
[2016-06-18] MEDS ORDERED: SPIRIVA1 INHALATI IH (13:55)
[2016-06-18] MEDS ORDERED: LOVENOX40 MG/0.4 SC (14:19)
[2016-06-18] MEDS ORDERED: KEFLEX500 MG PO (16:29)
[2016-06-18 17:55] LABS: INTER. NORMALIZED RATIO 1.1; PROTHROMBIN TIME 11.7 (9.2-11.2); PTT 30.1 (25-32)
[2016-06-18 19:00] LABS: HEMATOCRIT 36.3 % (36.0-46.0); MCV 79.4 FL (83-99)
[2016-06-19] VITALS (7 sets, daily range): BP systolic 103–131; BP diastolic 56–78
[2016-06-19 06:15] LABS: ANION GAP 9 MEQ/L (2-14); CHLORIDE 104 MEQ/L (99-109); GFR ESTIMATE (CALCULATED) > 59 mL/min/; GLUCOSE 140 mg/dL (70-99); POTASSIUM 4.1 MEQ/L (3.7-5.4); SAMPLE HEMOLYSIS CHECK 1; SAMPLE ICTERIC CHECK 0; SAMPLE LIPEMIA CHECK 0; SODIUM 136 MEQ/L (136-147); UREA NITROGEN (BUN) 30 mg/dL (9-23)
[2016-06-20 08:00] VITALS: BP 115/51
[2016-06-20 09:41] LABS: HEMATOCRIT 33.5 % (36.0-46.0); MCH 24.2 PG (29.0-34.0); MCHC 30.4 G/DL (30.0-36.0); MCV 79.6 FL (83-99); RBC DIS.WIDTH-CV 22.7 % (11.8-14.6); RBC DIS.WIDTH-SD 65.7 % (39-53); RED BLOOD COUNT 4.21 M/uL (3.80-5.20)
[2016-06-20 09:50] LABS: WHITE BLOOD COUNT 3.5 K/uL (4.1-10.2)
[2016-06-20 09:53] LABS: ALKALINE PHOSPHATASE 66 IU/L (3-129); ANION GAP 9 MEQ/L (2-14); CHLORIDE 108 MEQ/L (99-109); GFR ESTIMATE (CALCULATED) > 59 mL/min/; POTASSIUM 3.7 MEQ/L (3.7-5.4); SAMPLE HEMOLYSIS CHECK 0; SAMPLE ICTERIC CHECK 0; SAMPLE LIPEMIA CHECK 0; SODIUM 141 MEQ/L (136-147); TOTAL BILIRUBIN 0.4 MG/DL (0.0-1.0); UREA NITROGEN (BUN) 19 mg/dL (9-23)
[2016-06-20 09:54] LABS: GLUCOSE 77 mg/dL (70-99)
[2016-06-20 10:07] LABS: INTER. NORMALIZED RATIO 1.2; PROTHROMBIN TIME 12.5 (9.2-11.2)
[2016-06-20 10:14] LABS: PLATELET COUNT 148 K/uL (156-360)
== END 2016-06-20 14:53 | disposition designated cancer center or children's hospital (05) | DRG 389 ==
LOC: EME 08:35 → 2EAST 21:32 → EDOF 21:32 → 2EAST 22:45
PROVIDERS: Family Medicine; Hospitalist; Internal Medicine; Nurse Practitioner Family
DX: K56.41 Fecal impaction (principal); K92.1 Melena; K52.9 Noninfective gastroenteritis and colitis, unspecified; E11.9 Type 2 diabetes mellitus without complications; I25.10 Atherosclerotic heart disease of native coronary artery without angina pectoris; J44.9 Chronic obstructive pulmonary disease, unspecified; I10 Essential (primary) hypertension; K21.9 Gastro-esophageal reflux disease without esophagitis; R26.2 Difficulty in walking, not elsewhere classified; J45.909 Unspecified asthma, uncomplicated; I25.2 Old myocardial infarction; F41.9 Anxiety disorder, unspecified; E66.01 Morbid (severe) obesity due to excess calories; I48.0 Paroxysmal atrial fibrillation; Z68.43 Body mass index [BMI] 50.0-59.9, adult
CPT/HCPCS: 74176; 80048; 80053; 81003; 82948; 85014; 85018; 85027; 85610; 85730; 86850; 86900; 86901; 87077; 87086; 87186; 87493; 93005; 94640; 94640 76; 99202; 99281; 99285; J0696; J0744; J1650; J1815; J3010; J7030; J7050; J7512; S0028; S0030